=== PATIENT | male | born 1950 | race Caucasian/White ===

== ENCOUNTER 2016-10-13 01:32 | Inpatient (IN) | payer MEDICARE ==
[2016-10-13] VITALS (22 sets, daily range): BP systolic 92–118; BP diastolic 57–90
[~2016-10-13] VITALS: Ht 175.3 cm; Wt 101.0 kg
[~2016-10-13 01:32] MED LIST: CARVEDILOL6.25 MG PO; CEPHALEXIN500 MG PO; COUMADIN5 MG PO; FERR SULFATE325 MG PO; FLECAINIDE100 MG PO; HYDROCODONE/ACE1 TAB PO; LISINOPRIL5 MG PO; PRILOSEC40 MG PO; SG ASA LOW81 M1 PO; SIMVASTATIN40 MG PO; SLOW-MAG PO; VITAMIN D32000 UNIT PO; WARFARIN5 MG PO; [UNRECOGNIZED DRUG - OTHER] PO; [UNRECOGNIZED DRUG - REMARK] PO
[2016-10-13 01:59] LABS: HEMATOCRIT 37.9 % (39.0-50.0); HEMOGLOBIN 12.9 g/dl (14.0-18.0); IMMATURE GRANULOCYTES 0.3 % (0.0-1.0); MEAN CELL VOLUME 86.3 fL CALC (80.0-100.0); MEAN CORPUSCULAR HGB 29.4 pG CALC (26.0-32.0); NEUT# 4.61 thou/uL (1.82-7.42); RED BLOOD COUNT 4.39 mill/uL (4.70-6.10); RED CELL DISTRI WIDTH 13.5 % (11.5-15.5)
[2016-10-13 02:01] LABS: URINE BILIRUBIN - DIPSTICK NEGATIVE (NEGATIVE); URINE BLOOD DIPSTICK NEGATIVE (NEGATIVE); URINE CLARITY CLEAR; URINE COLOR YELLOW; URINE GLUCOSE - DIPSTICK NEGATIVE (NEGATIVE); URINE KETONE NEGATIVE (NEGATIVE); URINE LEUK ESTERASE NEGATIVE (NEGATIVE); URINE NITRITE - DIPSTICK NEGATIVE (Negative); URINE PROTEIN - DIPSTICK NEGATIVE (NEG-TRACE); URINE UROBILINOGEN - DIPSTICK 0.2 E.U./dL (0.2)
[2016-10-13 02:06] LABS: BARBITURATES NEGATIVE (NEGATIVE); COCAINE NEGATIVE (NEGATIVE); METHADONE NEGATIVE (NEGATIVE); OXCYCODONE NEGATIVE (NEGATIVE); TETRAHYDROCANNABIONOL NEGATIVE (NEGATIVE); TRICYLIC ANTIDEPRESSANTS NEGATIVE (NEGATIVE)
[2016-10-13 02:11] LABS: ALBUMIN 3.8 g/dL (3.2-5.0); ALKALINE PHOSPHATASE 113 u/l (38-126); ANION GAP 8 (6-22 (CALC)); BILIRUBIN, TOTAL 0.4 mg/dL (0.0-1.4); BUN 11 mg/dL (8-23); BUN/CREATININE RATIO 10 (12-20 (CALC)); CALCIUM 8.5 mg/dL (8.4-10.2); CARBON DIOXIDE 27 mmol/l (22-30); CHLORIDE 109 mmol/l (95-108); CREATININE 1.1 mg/dL (0.7-1.3); GFR > 60 ML/MIN (>=60 (CALC)); GFR FOR AFR.AMER. > 60 ML/MIN (>=60 (CALC)); GLUCOSE 91 mg/dL (82-115); POTASSIUM 4.2 mmol/l (3.5-5.1); SGOT/AST 21 u/l (19-48); SGPT/ALT 26 u/l (11-66); SODIUM 139 mmol/l (137-146); TOTAL PROTEIN 7.7 g/dL (6.3-8.2)
[2016-10-13 02:25] LABS: PROTHROMBIN TIME 35.3 SECONDS (9.0-12.5)
[2016-10-13 04:52] LABS: MYOGLOBIN 30 ng/mL (0 - 121)
[2016-10-14] VITALS (11 sets, daily range): BP systolic 94–144; BP diastolic 67–97
[2016-10-14 05:16] LABS: HEMATOCRIT 39.6 % (39.0-50.0); HEMOGLOBIN 13.1 g/dl (14.0-18.0); IMMATURE GRANULOCYTES 0.3 % (0.0-1.0); MEAN CORPUSCULAR HGB 28.8 pG CALC (26.0-32.0); MEAN CORPUSCULAR HGB CONC 33.1 g/L CALC (32.0-36.0); NEUT# 8.96 thou/uL (1.82-7.42); RED BLOOD COUNT 4.55 mill/uL (4.70-6.10); RED CELL DISTRI WIDTH 13.8 % (11.5-15.5)
[2016-10-14 05:26] LABS: INTERNATIONAL NORMALIZED RATIO 2.6 RATIO (0.7-1.3); PROTHROMBIN TIME 30.1 SECONDS (9.0-12.5)
[2016-10-14 05:55] LABS: ANION GAP 13 (6-22 (CALC)); BUN 12 mg/dL (8-23); BUN/CREATININE RATIO 13 (12-20 (CALC)); CALCIUM 8.5 mg/dL (8.4-10.2); CARBON DIOXIDE 25 mmol/l (22-30); CHLORIDE 108 mmol/l (95-108); CREATININE 0.9 mg/dL (0.7-1.3); GFR > 60 ML/MIN (>=60 (CALC)); GFR FOR AFR.AMER. > 60 ML/MIN (>=60 (CALC)); GLUCOSE 94 mg/dL (82-115); POTASSIUM 4.4 mmol/l (3.5-5.1); SODIUM 142 mmol/l (137-146)
[2016-10-14] MEDS ORDERED: LOPRESSOR 550 MG/TAB PO (18:23)
== END 2016-10-14 18:48 | disposition home or self-care (01) | DRG 310 ==
LOC: ENPENDDIS → ED 01:32 → ED-I 01:38 → ED 01:38 → ED-I 02:14 → ED 05:17 → ICU 05:18
PROVIDERS: Emergency Medicine; ADMIT Internal Medicine; ATTEND Internal Medicine
DX: I48.91 Unspecified atrial fibrillation (principal); I10 Essential (primary) hypertension; E78.5 Hyperlipidemia, unspecified; K21.9 Gastro-esophageal reflux disease without esophagitis; M54.30 Sciatica, unspecified side; Z79.01 Long term (current) use of anticoagulants
CPT/HCPCS: J0282; J1160

== ENCOUNTER 2017-04-22 12:38 | Emergency (ER) | payer MEDICARE ==
[~2017-04-22] VITALS: Ht 175.3 cm; Wt 101.9 kg
[~2017-04-22 12:38] MED LIST changes: +LOPRESSOR 550 MG/TAB PO
[2017-04-22 13:15] LABS: HEMATOCRIT 42.6 % (39.0-50.0); HEMOGLOBIN 14.5 g/dl (14.0-18.0); IMMATURE GRANULOCYTES 0.3 % (0.0-1.0); MEAN CELL VOLUME 89.1 fL CALC (80.0-100.0); MEAN CORPUSCULAR HGB 30.3 pG CALC (26.0-32.0); NEUT# 6.34 thou/uL (1.82-7.42); RED BLOOD COUNT 4.78 mill/uL (4.70-6.10)
[2017-04-22 13:23] LABS: ALBUMIN 4.3 g/dL (3.2-5.0); ALKALINE PHOSPHATASE 113 u/l (38-126); ANION GAP 16 (6-22 (CALC)); BILIRUBIN, TOTAL 0.9 mg/dL (0.0-1.4); BUN 18 mg/dL (8-23); BUN/CREATININE RATIO 16 (12-20 (CALC)); CALCIUM 9.2 mg/dL (8.4-10.2); CARBON DIOXIDE 24 mmol/l (22-30); CHLORIDE 109 mmol/l (95-108); CREATININE 1.1 mg/dL (0.7-1.3); GFR > 60 ML/MIN (>=60 (CALC)); GFR FOR AFR.AMER. > 60 ML/MIN (>=60 (CALC)); GLUCOSE 96 mg/dL (82-115); POTASSIUM 4.7 mmol/l (3.5-5.1); SGOT/AST 37 u/l (19-48); SGPT/ALT 39 u/l (11-66); SODIUM 144 mmol/l (137-146); TOTAL PROTEIN 7.7 g/dL (6.3-8.2)
[2017-04-22 13:30] LABS: INTERNATIONAL NORMALIZED RATIO 2.7 RATIO (0.7-1.3); PROTHROMBIN TIME 31.1 SECONDS (9.0-12.5)
[2017-04-22 13:35] LABS: MYOGLOBIN 89 ng/mL (0 - 121)
[2017-04-22] MEDS ORDERED: METOPROL TAR25 MG PO (14:17)
[2017-04-22] MEDS ORDERED: LISINOPRIL5 MG PO (14:19)
[2017-04-22] MEDS ORDERED: [UNRECOGNIZED DRUG - OTHER] PO (14:20)
[2017-04-22 15:49] VITALS: BP 96/69
== END 2017-04-22 15:49 | disposition short-term general hospital (02) ==
LOC: ED 12:38
PROVIDERS: Emergency Medicine
DX: I21.4 Non-ST elevation (NSTEMI) myocardial infarction (principal); I48.91 Unspecified atrial fibrillation; Z79.01 Long term (current) use of anticoagulants; Z51.81 Encounter for therapeutic drug level monitoring; I10 Essential (primary) hypertension; R06.02 Shortness of breath
CPT/HCPCS: J1160